=== PATIENT | male | born 1960 | race Caucasian/White ===

== ENCOUNTER 2021-01-15 16:14 | Emergency (ER) | payer BC ==
--- NOTE | 2021-01-15 17:59 | ED ---
General Adult HPI - General Chief complaint: Upper Respiratory Infection Stated complaint: Covid+, worsening symptoms Time Seen by Provider: 01/15/21 17:58 Source: patient Mode of arrival: ambulatory Limitations: no limitations - History of Present Illness Initial comments: Patient presents the ED stating that he was diagnosed with Covid 1 week ago, and he feels like his symptoms are getting worse. Patient states that he has had symptoms of cough, nasal congestion, fever, myalgias and malaise. Patient denies feeling dyspneic or having any chest pain. Patient denies Covid vaccination. Patient states that he took a dose of Tylenol 500 mg about 3 hours ago today for his fever. Patient states that he has not had much of an appetite recently. Patient denies headache, focal neuro deficit, neck pain or stiffness, sore throat, chest pain, dyspnea, hemoptysis, dizziness, abdominal pain, vomiting/diarrhea, dysuria or urinary symptoms, decreased urine output, leg or calf swelling or pain, or any other symptoms or complaints. - Related Data Allergies Allergy/AdvReac Type Severity Reaction Status Date / Time No Known Allergies Allergy Verified 01/15/21 16:21 Review of Systems ROS Statement: Those systems with pertinent positive or pertinent negative responses have been documented in the HPI. ROS Other: All systems not noted in ROS Statement are negative. Past Medical History Past Medical History: No Reported History History of Any Multi-Drug Resistant Organisms: None Reported Past Surgical History: No Surgical Hx Reported Past Psychological History: No Psychological Hx Reported Smoking Status: Never smoker Past Alcohol Use History: None Reported Past Drug Use History: None Reported General Exam Limitations: no limitations General appearance: alert, in no apparent distress Head exam: Present: atraumatic, normocephalic Eye exam: Present: normal appearance, EOMI ENT exam: Present: normal oropharynx, mucous membranes moist Neck exam: Present: other (Trachea is in midline). Absent: tenderness, meningismus Respiratory exam: Present: normal lung sounds bilaterally. Absent: respiratory distress, wheezes, rales, rhonchi, stridor Cardiovascular Exam: Present: normal rhythm, tachycardia, normal heart sounds, o ther (Normal radial pulses bilaterally) GI/Abdominal exam: Present: soft. Absent: distended, tenderness, guarding Extremities exam: Present: other (Negative Homans sign bilaterally). Absent: tenderness, pedal edema, calf tenderness Neurological exam: Present: alert, oriented X3. Absent: motor sensory deficit Psychiatric exam: Present: normal affect, normal mood Skin exam: Present: warm, dry, intact, normal color Course Vital Signs 01/15/21 01/15/21 16:19 19:05 Temperature 101 F H 99.5 F Pulse Rate 112 H 96 Respiratory 22 18 Rate Blood Pressure 146/85 139/83 O2 Sat by Pulse 96 94 L Oximetry - Reevaluation(s) Reevaluation #1: 01/15/21 19:47 Patient remains alert and breathing comfortable. Patient's fever and tachycardia have now resolved. Patient denies development of any new symptoms while in the ED. Patient is aware of his test results, and he feels comfortable going home at this time. Patient was counseled about Covid infections and fever control. Patient was clearly explained return and follow-up instructions. Patient was instructed to follow up closely with his primary care provider and to have a low threshold for return to the ED should his symptoms worsen. Patient feels comfortable with this plan. EKG Findings - EKG Comments: EKG Findings:: Sinus tachycardia, ventricular rate of 102 bpm, no ectopy, normal ND and QRS intervals, normal QT interval, normal axis, no ST or T-wave abnormality Medical Decision Making - Medical Decision Making Patient is alert and breathing comfortably with a normal room air oxygen saturation. Patient's chest x-ray is normal. Patient's d-dimer is negative. The rest of the patient's labs are fairly unremarkable. Patient does not meet any inclusion criteria for monoclonal antibody infusion therapy. I do not see an indication for hospital admission at this time. Will discharge patient home at this time with return and follow-up instructions given. Patient feels comfortable with this plan. - Lab Data Result diagrams: 01/15/21 18:31 01/15/21 18:31 Lab Results 01/15/21 01/15/21 01/15/21 Range/Units 18:31 18:31 18:31 WBC 4.4 (3.8-10.6) k/uL RBC 4.96 (4.30-5.90) m/uL Hgb 15.1 (13.0-17.5) gm/dL Hct 42.3 (39.0-53.0) % MCV 85.2 (80.0-100.0) fL MCH 30.3 (25.0-35.0) pg MCHC 35.6 (31.0-37.0) g/dL RDW 12.3 (11.5-15.5) % Plt Count 229 (150-450) k/uL MPV 7.1 Neutrophils % 72 % Lymphocytes % 18 % Monocytes % 7 % Eosinophils % 0 % Basophils % 0 % Neutrophils # 3.2 (1.3-7.7) k/uL Lymphocytes # 0.8 L (1.0-4.8) k/uL Monocytes # 0.3 (0-1.0) k/uL Eosinophils # 0.0 (0-0.7) k/uL Basophils # 0.0 (0-0.2) k/uL PT 10.3 (9.0-12.0) sec INR 1.0 (<1.2) APTT 24.6 (22.0-30.0) sec D-Dimer 0.47 (<0.60) mg/L FEU Sodium 134 L (137-145) mmol/L Potassium 4.1 (3.5-5.1) mmol/L Chloride 98 (98-107) mmol/L Carbon Dioxide 25 (22-30) mmol/L Anion Gap 11 mmol/L BUN 11 (9-20) mg/dL Creatinine 0.72 (0.66-1.25) mg/dL Est GFR (CKD-EPI)AfAm >90 (>60 ml/min/1.73 sqM) Est GFR (CKD-EPI)NonAf >90 (>60 ml/min/1.73 sqM) Glucose 105 H (74-99) mg/dL Plasma Lactic Acid Abimael (0.7-2.0) mmol/L Calcium 8.7 (8.4-10.2) mg/dL Magnesium 1.9 (1.6-2.3) mg/dL Total Bilirubin 0.6 (0.2-1.3) mg/dL AST 34 (17-59) U/L ALT 30 (4-49) U/L Alkaline Phosphatase 73 (38-126) U/L Lactate Dehydrogenase 446 (313-618) U/L C-Reactive Protein 27.3 H (<10.0) mg/L Total Protein 6.8 (6.3-8.2) g/dL Albumin 4.1 (3.5-5.0) g/dL 01/15/21 Range/Units 18:31 WBC (3.8-10.6) k/uL RBC (4.30-5.90) m/uL Hgb (13.0-17.5) gm/dL Hct (39.0-53.0) % MCV (80.0-100.0) fL MCH (25.0-35.0) pg MCHC (31.0-37.0) g/dL RDW (11.5-15.5) % Plt Count (150-450) k/uL MPV Neutrophils % % Lymphocytes % % Monocytes % % Eosinophils % % Basophils % % Neutrophils # (1.3-7.7) k/uL Lymphocytes # (1.0-4.8) k/uL Monocytes # (0-1.0) k/uL Eosinophils # (0-0.7) k/uL Basophils # (0-0.2) k/uL PT (9.0-12.0) sec INR (<1.2) APTT (22.0-30.0) sec D-Dimer (<0.60) mg/L FEU Sodium (137-145) mmol/L Potassium (3.5-5.1) mmol/L Chloride (98-107) mmol/L Carbon Dioxide (22-30) mmol/L Anion Gap mmol/L BUN (9-20) mg/dL Creatinine (0.66-1.25) mg/dL Est GFR (CKD-EPI)AfAm (>60 ml/min/1.73 sqM) Est GFR (CKD-EPI)NonAf (>60 ml/min/1.73 sqM) Glucose (74-99) mg/dL Plasma Lactic Acid Abimael 0.9 (0.7-2.0) mmol/L Calcium (8.4-10.2) mg/dL Magnesium (1.6-2.3) mg/dL Total Bilirubin (0.2-1.3) mg/dL AST (17-59) U/L ALT (4-49) U/L Alkaline Phosphatase (38-126) U/L Lactate Dehydrogenase (313-618) U/L C-Reactive Protein (<10.0) mg/L Total Protein (6.3-8.2) g/dL Albumin (3.5-5.0) g/dL - Radiology Data Radiology results: report reviewed (Chest x-ray: Normal chest) Disposition Clinical Impression: COVID-19 Disposition: HOME SELF-CARE Condition: Stable Instructions (If sedation given, give patient instructions): Coronavirus Disease 2019 (COVID-19), Fever in Adults (ED) Additional Instructions: Return to the ER immediately should you develop shortness of breath, chest pain, persistent vomiting, feeling dizzy or faint, or new or worsening symptoms. Follow up closely with your primary care provider. Is patient prescribed a controlled substance at d/c from ED?: No Referrals: Anthony Weiner MD [Primary Care Provider] - 1-2 days Time of Disposition: 19:51
[2021-01-15] MEDS ORDERED: IBUPROFEN 600 MG TAB PO STA (18:07)
[2021-01-15] MEDS ORDERED: SODIUM CHLORIDE 0.9% 1,000 ML IV ONE (18:07)
[2021-01-15 19:06] LABS: Basophils % (A) 0 %; Eosinophils % (A) 0 %; HCT 42.3 % (39.0-53.0); HGB 15.1 gm/dL (13.0-17.5); Lymphocytes # (A) 0.8 k/uL (1.0-4.8); Lymphocytes % (A) 18 %; MCH 30.3 pg (25.0-35.0); MCHC 35.6 g/dL (31.0-37.0); MCV 85.2 fL (80.0-100.0); Mean Platelet Volume 7.1; Monocytes # (A) 0.3 k/uL (0-1.0); Monocytes % (A) 7 %; Neutrophils # (A) 3.2 k/uL (1.3-7.7); Neutrophils % (A) 72 %; Platelet Count 229 k/uL (150-450); RBC 4.96 m/uL (4.30-5.90); RDW 12.3 % (11.5-15.5); WBC 4.4 k/uL (3.8-10.6)
[2021-01-15 19:07] VITALS: RESP 18
--- NOTE | 2021-01-15 19:09 | XR ---
EXAMINATION TYPE: XR chest 1V portable DATE OF EXAM: 01/15/2021 COMPARISON: NONE HISTORY: Short of breath TECHNIQUE: Single view FINDINGS: Heart and mediastinum are normal. Lungs are clear. Diaphragm is normal. There are chest leno ds. Bony thorax is intact. IMPRESSION: Normal chest
[2021-01-15 19:36] LABS: ALT 30 U/L (4-49); AST 34 U/L (17-59); African American GFR (CKD) >90 (>60 ml/min/1.73 sqM); Albumin 4.1 g/dL (3.5-5.0); Alkaline Phosphatase 73 U/L (38-126); Anion Gap 11 mmol/L; Blood Urea Nitrogen 11 mg/dL (9-20); C Reactive Protein 27.3 mg/L (<10.0); Calcium 8.7 mg/dL (8.4-10.2); Carbon Dioxide 25 mmol/L (22-30); Chloride 98 mmol/L (98-107); Glucose 105 mg/dL (74-99); LDH 446 U/L (313-618); Magnesium 1.9 mg/dL (1.6-2.3); Non-African American GFR(CKD) >90 (>60 ml/min/1.73 sqM); Potassium 4.1 mmol/L (3.5-5.1); Sodium 134 mmol/L (137-145); Total Bilirubin 0.6 mg/dL (0.2-1.3); Total Protein 6.8 g/dL (6.3-8.2)
[2021-01-15 19:39] LABS: D-Dimer 0.47 mg/L FEU (<0.60); Partial Thromboplastin Time 24.6 sec (22.0-30.0); Prothrombin Time 10.3 sec (9.0-12.0)
[2021-01-15 20:06] VITALS: BP 135/79; PULSE 86; TEMP 99.2
[2021-01-16 09:26] LABS: Ferritin 285.4 ng/mL (22.0-322.0)
== END 2021-01-15 20:06 | disposition home or self-care (01) ==
LOC: EC 16:14
DX: U07.1 COVID-19 (principal)
CPT/HCPCS: 36415; 71045; 80053; 82728; 83605; 83615; 83735; 84145; 85025; 85379; 85610; 85730; 86140; 87040; 93005; 96360; 99284

== ENCOUNTER 2021-12-22 06:49 | Day surgery (SDC) | payer BC ==
[~2021-12-22 06:49] MED LIST: LACTATED RINGERS 1,000 ML IV SCH
[2021-12-22 07:20] VITALS: TEMP 97.3
[2021-12-22] MEDS ORDERED: PROPOFOL 10 MG/ML 20 ML VIAL IV ONE (07:45)
[2021-12-22] MEDS ORDERED: GLYCOPYRROLATE 0.2 MG/ML 2 ML VIAL ONE (07:45)
--- NOTE | 2021-12-22 07:48 | P.GSHP ---
History of Present Illness H&P Date: 12/22/21 CHIEF COMPLAINT: Colon screen HISTORY OF PRESENT ILLNESS: The patient is a 61-year-old male who presents for colon screen. Lower endoscopy was offered for further evaluation and management. PAST MEDICAL HISTORY: Please see list. PAST SURGICAL HISTORY: Please see list. MEDICATIONS: Please see list. ALLERGIES: Please see list. SOCIAL HISTORY: No illicit drug use FAMILY HISTORY: No reports of Crohn disease or ulcerative colitis. REVIEW OF ORGAN SYSTEMS: CONSTITUTIONAL: No reports of fevers or chills. PHYSICAL EXAM: VITAL SIGNS: Stable GENERAL: Well-developed pleasant in no acute distress. HEENT: No scleral icterus. Extraocular movements grossly intact. Moist buccal mucosa. NECK: Supple without lymphadenopathy. CHEST: Unlabored respirations. Equal bilateral excursions. CARDIOVASCULAR: Regular rate and rhythm. Distal 2+ pulses. ABDOMEN: Soft, nontender, nondistended. MUSCULOSKELETAL: No clubbing, cyanosis, or edema. ASSESSMENT: 1. Colon screen. PLAN: 1. Recommend proceeding with a lower endoscopy Past Medical History Past Medical History: No Reported History History of Any Multi-Drug Resistant Organisms: None Reported Past Surgical History: No Surgical Hx Reported Additional Past Surgical History / Comment(s): COLONOSCOPY Past Anesthesia/Blood Transfusion Reactions: No Reported Reaction Smoking Status: Never smoker - Past Family History Mother Family Medical History: No Reported History Medications and Allergies Home Medications Medication Instructions Recorded Confirmed Type No Known Home Medications 12/20/21 12/22/21 History Allergies Allergy/AdvReac Type Severity Reaction Status Date / Time No Known Allergies Allergy Verified 12/22/21 07:08 Surgical - Exam Vital Signs Temp Pulse Resp BP Pulse Ox 97.3 F L 67 16 138/76 97 12/22/21 07:11 12/22/21 07:11 12/22/21 07:11 12/22/21 07:11 12/22/21 07:11
--- NOTE | 2021-12-22 08:12 | P.PCN ---
Date of Procedure: 12/22/21 Description of Procedure: PREOPERATIVE DIAGNOSIS: Colonoscopy screening POSTOPERATIVE DIAGNOSIS: Cecal polyp Tubular adenoma sigmoid colon Internal hemorrhoids, grade 2 Scattered diverticulosis OPERATION: Colonoscopy to the ileocecal valve and appendiceal orifice, cecum Colonoscopy with cold forceps biopsy SURGEON: Lorena Brown MD. ANESTHESIA: MAC. INDICATIONS: The patient is an 61-year-old male who presents for colonoscopy screening. Last colonoscopy 10 years. Benefits and risks were described and informed consent was obtained. DESCRIPTION OF PROCEDURE: The patient had undergone Sutab prep. The patient had been brought into the operating room and laid in the left lateral decubitus position. After adequate intravenous sedation, the rectum was examined with 2% lidocaine jelly. The prostate was unremarkable. External hemorrhoids were encountered. The rectal tone was within normal limits. No lesions were palpated in the rectal vault. An Olympus colonoscope was advanced until the cecum, ileocecal valve and appendiceal orifice were clearly viewed. The prep was excellent. Scattered diverticulosis was found. Colonic polyps were found and removed. No evidence of focal colitis was found. Retroflexion of the scope demonstrated grade 2 internal hemorrhoids without active bleeding or inflammation. The colon was desufflated. The patient had tolerated the procedure well. Withdrawal time was over 6 minutes. FINDINGS: Aronchick preparation quality scale 1 (1-5) Internal hemorrhoids, grade 2 External hemorrhoids, grade 2 No arteriovenous malformations. Scattered diverticulosis Removal of 2 polyps: - Cold forceps biopsy at 25 cm from the anal verge, 3 mm polyp, sigmoid colon - Cold forceps biopsy at ileocecal valve/cecum, 4 mm polyp. No focal colitis. RECOMMENDATIONS: Repeat colonoscopy in 2026 Plan - Discharge Summary Discharge Rx Participant: No New Discharge Prescriptions: Continue No Known Home Medications Discharge Medication List No Known Home Medications 12/20/21 [History] Follow up Appointment(s)/Referral(s): Lroena Brown MD [STAFF PHYSICIAN] - As Needed Patient Instructions/Handouts: Colorectal Polyps (GEN), Diverticulosis Diet (GEN), Diverticulosis (DC), *Surgery [facility] - (Anesthesia) Endoscopy Discharge Instructions, Advance Directives (DC) Activity/Diet/Wound Care/Special Instructions: Repeat colonoscopy in years2026 Discharge Disposition: HOME SELF-CARE
[2021-12-22 08:26] VITALS: RESP 16
[2021-12-22 08:34] VITALS: BP 149/86; PULSE 74
== END 2021-12-22 09:33 | disposition home or self-care (01) ==
LOC: ORWHC2ENDO 06:49
PROVIDERS: ATTEND Surgery Plastic and Reconstructive Surgery
DX: Z12.11 Encounter for screening for malignant neoplasm of colon (principal); K63.5 Polyp of colon; K57.30 Diverticulosis of large intestine without perforation or abscess without bleeding; K64.1 Second degree hemorrhoids; K64.4 Residual hemorrhoidal skin tags; K21.9 Gastro-esophageal reflux disease without esophagitis; Z98.890 Other specified postprocedural states
CPT/HCPCS: 88305; 45380; J2704

== ENCOUNTER → 2025-02-13 | Outpatient (CLI) | payer BC ==
--- NOTE | 2025-02-13 08:35 | XR ---
EXAMINATION TYPE: XR Hip 2 views Bilateral and AP pelvis DATE OF EXAM: 02/13/2025 8:18 AM COMPARISON: None CLINICAL INDICATION: Male, 64 years old with history of LEFT AND RIGHT HIP PAIN; PHH, pain TECHNIQUE: Total 5 images taken FINDINGS: SI joints appear symmetric and intact as does the pubic symphysis. There may be some asymmetric mild joint space narrowing at the right SI joint. There is mild degenerative change at both hips with some marginal spurring. Degenerative labral ossification loss acetabulum on both sides. Cystic change at the left superior femoral head neck junction as well as anterior and superior femoral head neck junct ion osseous excrescences. No acute fracture, subluxation, dislocation. IMPRESSION: Mild bilateral hip OA, left greater than right, secondary to chronic CAM type MARLENE. Some possible mild asymmetric OA right SI joint. [facility], Workstation: [facility], 02/13/2025 8:33 AM
== END | disposition home or self-care (01) ==
LOC: RADXRMAIN 07:59
PROVIDERS: ATTEND Internal Medicine
DX: M16.0 Bilateral primary osteoarthritis of hip (principal)
CPT/HCPCS: 73521

== ENCOUNTER → 2025-02-13 | Outpatient (CLI) | payer BC ==
[2025-02-13 10:13] LABS: Basophils # (A) 0.04 X 10*3/uL (0.00-0.10); Basophils % (A) 0.7 %; Eosinophils # (A) 0.12 X 10*3/uL (0.04-0.35); Eosinophils % (A) 2.2 %; HCT 43.9 % (39.6-50.0); HGB 14.4 g/dL (13.0-17.0); Lymphocytes # (A) 1.72 X 10*3/uL (0.90-5.00); MCHC 32.8 g/dL (32.0-37.0); MCV 88.5 FL (80.0-97.0); Mean Platelet Volume 10.1 FL (9.5-12.2); Monocytes # (A) 0.44 X 10*3/uL (0.20-1.00); Monocytes % (A) 7.9 %; NRBC Per 100 WBC 0 X 10*3/uL (0.00-0.01); Neutrophils # (A) 3.21 X 10*3/uL (1.80-7.70); Neutrophils % (A) 57.8 %; Platelet Count 269 X 10*3/uL (140-440); RBC 4.96 X 10*6/uL (4.40-5.60); RDW 12.8 % (11.5-14.5); WBC 5.55 X 10*3/uL (4.50-10.00)
[2025-02-13 10:39] LABS: Blood Urea Nitrogen 18.1 mg/dL (9.0-27.0); Chloride 104 mmol/L (96-109); Chol/HDL Ratio 2.55 Ratio; Creatine Kinase 72 U/L (35-257); Glucose 105 mg/dL (70-110); LDL Cholesterol,Calculated 67.8 mg/dL (0.0-131.0); Potassium 4.5 mmol/L (3.5-5.5); Sodium 140 mmol/L (135-145); VLDL Calculation 17.96 mg/dL (5.00-40.00)
[2025-02-13 10:40] LABS: ALT 24 U/L (10-49); AST 22 U/L (14-35); Albumin 4.3 g/dL (3.8-4.9); Albumin/Globulin Ratio 1.79 Ratio (1.60-3.17); Alkaline Phosphatase 69 U/L (41-126); Calcium 9.1 mg/dL (8.7-10.3); Carbon Dioxide 26.1 mmol/L (21.6-31.8); Globulin 2.4 g/dL (1.6-3.3); Total Bilirubin 0.7 mg/dL (0.3-1.2); Total Protein 6.7 g/dL (6.2-8.2)
== END | disposition home or self-care (01) ==
LOC: LABWHC1 07:27
PROVIDERS: ATTEND Internal Medicine
DX: Z12.5 Encounter for screening for malignant neoplasm of prostate (principal); Z11.59 Encounter for screening for other viral diseases; E78.5 Hyperlipidemia, unspecified
CPT/HCPCS: 36415; 80053; 80061; 82550; 83735; 84153; 84443; 85025; 86803